=== PATIENT | male | born 1980 | race Caucasian/White ===

== ENCOUNTER 2017-06-20 00:10 | Emergency (ER) | payer BC ==
[2017-06-20] MEDS ORDERED: Sodium Chloride 0.9% 1000 ML 1,000 ML IV STA (00:53)
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
[2017-06-20] MEDS ORDERED: Sodium Chloride 0.9% 1000 ML 1,000 ML ONE (01:10)
[2017-06-20 01:13] LABS: BASOPHIL % 0.4 % (0.0-0.4); Basophil (Absolute #) 0.03 (0-0.4); Eosinophil % 1.6 % (0.00-5.0); Eosinophil (Absolute #) 0.13 (0-0.5); Granulocyte Absolute (ANC) 5.22 (1.4-6.9); Granulocytes % 63.8 % (36.0-66.0); Hematocrit 43.3 % (42-50); Hemoglobin 14.6 gm/dl (12.5-18.0); Lymphocyte (Absolute #) 1.93 (1.0-4.6); Lymphocytes % 23.6 % (24.0-44.0); Mean Cell Volume 92.9 fl (78-100); Mean Corpuscular Hemoglobin 31.3 pg (26-32); Mean Corpuscular Hgb Concent. 33.7 g/dl (32-36); Mean Platelet Volume 10.2 fl (6-9.5); Monocyte (Absolute #) 0.87 (0.0-1.3); Monocytes % 10.6 % (0.0-12.0); Platelet Count 154 K/mm3 (150-450); Red Blood Count 4.66 M/mm3 (4.1-5.6); Red Cell Distribution Width 12.2 % (11.5-14.0); White Blood Count 8.2 K/mm3 (4.0-10.5)
[2017-06-20 01:21] LABS: Amphetamine,Urine NEG. (NEGATIVE); Appearance CLEAR (CLEAR); Barbiturate,Urine NEG. (NEGATIVE); Benzodiazepine,Urine NEG. (NEGATIVE); Bilirubin NEGATIVE (NEGATIVE); Cocaine,Urine NEG. (NEGATIVE); Glucose NEGATIVE (NEGATIVE); Ketones NEGATIVE (NEGATIVE); Leukocyte Esterase TRACE (NEGATIVE); Methadone,Urine NEG. (NEGATIVE); Nitrite NEGATIVE (NEGATIVE); Opiate,Urine NEG. (NEGATIVE); PCP,Urine NEG. (NEGATIVE); Protein,Urine Dip TRACE (Negative); THC,Urine NEG. (NEGATIVE); Urobilinogen NORMAL mg/dL (0-1)
[2017-06-20 01:22] LABS: Blood TRACE NON-HEM Ery/ul (0-5)
[2017-06-20 01:23] LABS: Bacteria FEW /HPF (NEGATIVE); Epithelial Cells RARE /HPF (FEW); Mucus SLIGHT /HPF (NEGATIVE)
[2017-06-20 01:33] LABS: ALBUMIN 3.8 g/dL (3.4-5.0); ALKALINE PHOSPHATASE 71 U/L (46-116); ANION GAP 11.8 MEQ/L (5-15); BLOOD UREA NITROGEN 14 mg/dL (9-20); CHLORIDE 106 mEq/L (98-107); Carbon Dioxide 27.9 mEq/L (21-32); Creatinine 1 1.14 mg/dl (0.55-1.30); EST GLOMERULAR FILTRATION RATE > 60 ML/MIN; Glucose 134 MG/DL (70-110); Potassium 3.5 mEq/L (3.5-5.1); SGOT/AST 22 U/L (15-37); SGPT/ALT 27 U/L (12-78); SODIUM 142 mEq/L (136-145); Total Protein 6.8 gm/dL (6.4-8.2)
[2017-06-20 02:22] VITALS: BP 128/70; PULSE 80; O2SAT 99
[2017-06-20 03:47] LABS: ETHYL ALCOHOL < 0.010 % (0.00-0.01)
--- NOTE | 2017-06-20 08:10 | XRAY ---
Indication: Fall following syncope. Questionable convulsion. Multiple contiguous axial images obtained through the head without contrast. Comparison: None No acute intracranial hemorrhage, abnormal extra-axial fluid collection, or mass effect. Fourth ventricle is midline without hydrocephalus. Thomas-white matter differentiation is preserved. Bony calvarium intact. Visualized paranasal sinuses and mastoid air cells are pneumatized and clear. Impression: No acute intracranial abnormalities. Comment: Preliminary interpretation was made by [facility]. No discrepancy. CTDI 48.25
== END 2017-06-20 02:30 | disposition home or self-care (01) ==
LOC: ED 00:10
DX: R55 Syncope and collapse (principal)
CPT/HCPCS: 36000; 36415; 70450; 80053; 80307; 81000; 85025; 87086; 93005; 96360; 99284; G0481